=== PATIENT | male | born 1945 | race Caucasian/White ===

== ENCOUNTER 2020-02-27 16:33 | Inpatient (IN) | payer MEDICARE ==
[2020-02-27] MEDS ORDERED: Senokot S 8.6-50 MG TAB PO PRN (19:33)
[2020-02-27] MEDS ORDERED: Dextrose 50% Abboject 50 ML SYRINGE SLOW IVP PRN (19:47)
[2020-02-27] MEDS ORDERED: Insulin Glargine 15 UNITS in Pre-Filled Syringe 1 EACH SC SCH (21:00)
[2020-02-27] MEDS: Famotidine 20 MG TAB PO SCH (21:59)
[2020-02-27] MEDS: Docusate 100 MG CAP PO SCH (21:59)
[2020-02-27] MEDS: Latanoprost 0.005% Ophth Soln 2.5 ml Bottle EA EYE SCH (21:59)
[2020-02-27] MEDS: Tamsulosin HCl 0.4 MG CAP PO SCH (21:59)
[2020-02-27] MEDS: Lantus 1000 UNITS/10 ML VIAL SC SCH (22:00)
[2020-02-27] MEDS: HumaLOG 300 UNITS/3 ML VIAL SC PRN (22:01)
[2020-02-28 02:54] LABS: Bilirubin Negative (Negative); Blood, Urine Large (Negative); Clarity Hazy (Clear); Glucose, Urine (Dipstick) Negative (Negative); Ketone, Urine Negative (Negative); Leukocyte Moderate (Negative); Nitrite Negative (Negative); Protein, Urine (Dipstick) 100 mg/dL (Neg-Trace)
[2020-02-28 03:16] LABS: WBC/HPF Greater Than 50 HPF (0-3)
[2020-02-28 03:17] LABS: Squamous Epithelial 0-3 HPF (0-3)
[2020-02-28 03:18] LABS: Bacteria/HPF 2+ HPF (None Seen); Yeast-Budding 1+ HPF (None Seen)
[2020-02-28] MEDS: Levothyroxine Sodium 50 MCG TAB PO SCH (05:34)
[2020-02-28] MEDS: Ondansetron ODT 4 MG TAB PO PRN (05:36)
[2020-02-28] MEDS: Enoxaparin Sodium 40 MG/0.4 ML SYRINGE SC SCH (08:25)
[2020-02-28] MEDS: Amlodipine 5 MG TAB PO SCH (08:25)
[2020-02-28] MEDS: Dutasteride 0.5 MG CAP PO SCH (08:25)
[2020-02-28] MEDS: Famotidine 20 MG TAB PO SCH ×2 (08:25→22:01)
[2020-02-28] MEDS: Polyethylene Glycol 3350 17 GM Packet PO SCH (08:25)
[2020-02-28] MEDS: Docusate 100 MG CAP PO SCH ×2 (08:26→22:03)
[2020-02-28] MEDS: Lantus 1000 UNITS/10 ML VIAL SC SCH ×2 (08:29→22:04)
[2020-02-28] MEDS ORDERED: DULAGLUTIDE 0.75 UNIT SC SCH (09:00)
[2020-02-28] MEDS ORDERED: Fluticasone Propionate Nasal Spray 16 gm Bottle NASAL SCH (11:00)
[2020-02-28] MEDS: Artificial Tear Sol 15 ML BOT EA EYE PRN ×2 (12:24→22:04)
[2020-02-28] MEDS: HumaLOG 300 UNITS/3 ML VIAL SC PRN ×2 (12:39→16:50)
[2020-02-28] MEDS: Tamsulosin HCl 0.4 MG CAP PO SCH (22:01)
[2020-02-28] MEDS: Acetaminophen 325 MG TAB PO PRN (22:03)
[2020-02-28] MEDS: Latanoprost 0.005% Ophth Soln 2.5 ml Bottle EA EYE SCH (22:04)
--- NOTE | 2020-02-29 00:49 | HP ---
PRIMARY CARE PHYSICIAN: Dr. Clyde Bertrand. REASON FOR ADMISSION: For skilled rehabilitation at [facility], status post neuroendocrine carcinoma, large cell anaplastic carcinoma , status post surgical resection, urinary retention and physical debility. HISTORY OF PRESENT ILLNESS: Mr. Tracy is a very pleasant 74-year-old male, with a medical history of diabetes, type 2; carotid artery stenosis requiring prior endarterectomy as well as prior bypass procedure. Patient does have a history of BPH and bladder cancer under the care of urologist; obstructive sleep apnea, on his CPAP. The patient had presented to the emergency room via EMS on the 08 of February due to syncopal episode. Patient did not have any recollection of the events and he was seen in the emergency room in [place], where he had a CT scan of the brain and at that time revealed a left parietooccipital scalp contusion with hematoma with extensive right frontal white matter, likely a cyst or old infarction. No significant mass effect was seen. Patient was recommended to have an MRI to look for underlying occult mass and nothing was seen at that time. He was discharged home to follow up as an outpatient. Patient stated he had woken up about 3:00 a.m. to go to the bathroom and he used a walker to be safe which was not typical for him. Patient stated he was walking down the [place] when he passed out again and fell through a window. Patient was seen again via EMS and brought back to the emergency room. A repeat CAT scan of the head showed progression with some midline shift. Initially, patient had no significant neurological symptoms, but upon further questioning, he noted he had some tingling in his right finger and middle fingers, and he had been dropping things. Otherwise, patient denies any numbness, weakness, difficulty with speech or swallowing or any gait or balance issues prior to all of this. Patient was seen by neurosurgeon and underwent a resection by Dr. Whitney on February 13. Patient was started on steroids to help with edema around the tumor. During hospitalization in [facility], patient complains of a persistent headache as well as nasal congestion. He was started on Flonase with oral medications for pain. He was noted to have significant weakness, difficulty doing more than sitting up on the side of the bed and he was started on physical therapy. Occupational Therapy also started working with the patient to help regain his strength. During hospitalization, patient's blood pressure was managed with metoprolol with addition of amlodipine, which he tolerated well. His blood sugars were controlled with a combination of Trulicity and long-acting insulin and patient does have a history of a urinary retention and during hospitalization, he had to have a Chau catheter reinserted and he was started on Flomax and continuation of Avodart that he was taking at home. Patient does have a history of sleep apnea and uses a CPAP at home. Due to the new onset severe deconditioning, it was decided for the patient to come to skilled rehabilitation for physical therapy prior to discharge back to his home. Upon evaluation of the patient today, he was sleepy, but easily arousable. He complained of some topical head pain to the incision site on his scalp. He denies any nausea, vomiting, chest pain, or dizziness. He complains of weakness. Patient is noted by staff to be mildly forgetful as he repeats the same questions over and over. PAST MEDICAL HISTORY: CAD, obstructive sleep apnea, and urinary retention. FAMILY HISTORY: Patient reports cardiac history in his father and diabetes in his mother. SOCIAL HISTORY: Denies tobacco, alcohol, or illicit drug use. Patient lives at home with his . CODE STATUS: The patient is a full code. is the surrogate decision maker that should be necessary. MEDICATIONS: 1. Arlington 7.5/325. 2. Amlodipine 2.5 daily. 3. Artificial Tears. 4. Colace 100 b.i.d. 5. Avodart 0.5 daily. 6. Lovenox 40 subcu daily. 7. Pepcid 20 b.i.d. 8. Flonase 1 spray to each nose daily. 9. Lantus 15 units subcu b.i.d. 10. Synthroid 50 mcg daily. 11. Toprol-XL 100 mg daily. 12. Trulicity 0.75 subcu once a week. 13. Flomax 0.4 at bedtime. REVIEW OF SYSTEMS: CONSTITUTIONAL: Patient complains of generalized weakness. Patient denies any fever or chills. RESPIRATORY: Denies cough or shortness of breath. CARDIOVASCULAR: Denies chest pain or palpitation. GASTROINTESTINAL: Denies nausea, vomiting, diarrhea, or constipation. GENITOURINARY: Patient denies dysuria. Patient does have a Chau catheter in place. NEUROLOGIC: Patient complains of generalized weakness, mild head pain. PSYCHIATRY: Patient is noted to have some confusion. SKIN: Patient denies any rash or lesions. PHYSICAL EXAMINATION: VITAL SIGNS: Temperature 97.2, pulse 62, respirations 18, blood pressure 155/77 , and O2 is 96% on room air. GENERAL: Patient is sleepy, but easily arousable. Complains of mild pain to his scalp. Denies any blurry vision. No dizziness. Otherwise, he is not in any apparent distress. LUNGS: Clear to auscultation bilaterally. HEART: Has normal S1, S2. No murmurs, no gallops, no rubs. ABDOMEN: Positive bowel sounds. Soft, nontender, and nondistended. CHEST: Patient does have a left subclavian pacemaker. HEENT: Normocephalic, atraumatic. Well-healing incision to his right scalp. EXTREMITIES: No cyanosis, no clubbing, no edema. SKIN: Normal turgor. Mild skin tear to left forearm, superficial. NEUROLOGIC: Patient does have slight weakness with left hand automatic bandsaw tender. PSYCHIATRY: Normal affect. Normal behavior. Alert, awake, and oriented x3. Per nurse, patient has had some mild confusion with repeating of questions. ASSESSMENT: 1. Neuroendocrine carcinoma, large cell anaplastic carcinoma, status post resection. 2. Physical debility. 3. Urinary retention with current Chau catheter in place. 4. Gait instability. 5. Obstructive sleep apnea. 6. Mild anemia postoperatively. 7. Diabetes, type 2, on insulin. 8. BPH. 9. Coronary artery disease. 10. Right popliteal fossa cyst. 11. Hypothyroidism. 12. Multilevel spondylosis of the cervical spine and ankylosis of C5-C7. 13. Glaucoma. 14. Hypertension. PLAN: Patient is a 74-year-old male, who is being admitted to [facility] for skilled rehabilitation prior to discharge back to his home. We will consult Physical Therapy for strengthening, gait, balance , and ambulation. We will consult Occupational Therapy to help with activities of daily living prior to discharge back to his home. We will consult Speech Therapy due to recent surgery to help with swallowing. We will monitor patient closely for any hemodynamic instability. We will assist patient in making followup appointments with neurosurgeon, oncologist, and urologist. We will start the patient on a voiding trial to help him with the urinary retention and possibly discontinuing of his Chau. We will place the patient on Accu-Chek a.c. and at bedtime. We will place the patient on sliding scale. Will continue patient's Lantus b.i.d. We will cover patient's pain with Arlington. We will resume all patient's home medications. Unfortunately, when patient presented for admission, his CPAP was broken and this could be used well. stated she was going to assist with getting a new one. We will help followup on this as patient strongly needs his CPAP machine due to his obstructive sleep apnea. We will place the patient on Lovenox for DVT prophylaxis and Pepcid for GI prophylaxis. ESTIMATED LENGTH OF STAY: Two to three weeks. DISCHARGE DISPOSITION: Back to his home with his . Job ID: [id number] MTDD
[2020-02-29] MEDS: Levothyroxine Sodium 50 MCG TAB PO SCH (05:24)
[2020-02-29] MEDS: Docusate 100 MG CAP PO SCH ×2 (08:17→21:17)
[2020-02-29] MEDS: Amlodipine 5 MG TAB PO SCH (08:17)
[2020-02-29] MEDS: Enoxaparin Sodium 40 MG/0.4 ML SYRINGE SC SCH (08:17)
[2020-02-29] MEDS: Famotidine 20 MG TAB PO SCH ×2 (08:17→21:17)
[2020-02-29] MEDS: Dutasteride 0.5 MG CAP PO SCH (08:17)
[2020-02-29] MEDS: Polyethylene Glycol 3350 17 GM Packet PO SCH (08:19)
[2020-02-29] MEDS ORDERED: Fluticasone Propionate Nasal Spray 16 gm Bottle NASAL SCH (09:00)
[2020-02-29] MEDS: HumaLOG 300 UNITS/3 ML VIAL SC PRN ×4 (09:13→21:16)
[2020-02-29] MEDS: Lantus 1000 UNITS/10 ML VIAL SC SCH ×2 (09:13→21:16)
[2020-02-29] MEDS: Acetaminophen 325 MG TAB PO PRN ×2 (11:55→21:18)
[2020-02-29] MEDS: Artificial Tear Sol 15 ML BOT EA EYE PRN (21:17)
[2020-02-29] MEDS: Tamsulosin HCl 0.4 MG CAP PO SCH (21:18)
[2020-02-29] MEDS: Fluticasone Propionate Nasal Spray 16 gm Bottle NASAL SCH (21:18)
[2020-02-29] MEDS: Latanoprost 0.005% Ophth Soln 2.5 ml Bottle EA EYE SCH (21:18)
[2020-03-01] MEDS: Levothyroxine Sodium 50 MCG TAB PO SCH (05:53)
[2020-03-01] MEDS: Dutasteride 0.5 MG CAP PO SCH (08:09)
[2020-03-01] MEDS: Artificial Tear Sol 15 ML BOT EA EYE PRN (08:10)
[2020-03-01] MEDS: Docusate 100 MG CAP PO SCH ×2 (08:10→20:15)
[2020-03-01] MEDS: Famotidine 20 MG TAB PO SCH ×2 (08:10→20:16)
[2020-03-01] MEDS: Fluticasone Propionate Nasal Spray 16 gm Bottle NASAL SCH ×2 (08:10→20:52)
[2020-03-01] MEDS: Amlodipine 5 MG TAB PO SCH (08:10)
[2020-03-01] MEDS: Enoxaparin Sodium 40 MG/0.4 ML SYRINGE SC SCH (08:11)
[2020-03-01] MEDS: Lantus 1000 UNITS/10 ML VIAL SC SCH ×2 (08:11→20:52)
[2020-03-01] MEDS: HumaLOG 300 UNITS/3 ML VIAL SC PRN ×3 (08:11→17:04)
[2020-03-01] MEDS: Polyethylene Glycol 3350 17 GM Packet PO SCH (08:12)
[2020-03-01] MEDS: Acetaminophen 325 MG TAB PO PRN ×2 (08:20→20:16)
[2020-03-01] MEDS: Ondansetron ODT 4 MG TAB PO PRN (08:23)
[2020-03-01] MEDS ORDERED: Ondansetron ODT 4 MG TAB PO SCH (09:45)
[2020-03-01] MEDS: Sodium Chloride 0.65% Nasal 44 ML BOT EA NARE PRN (10:07)
[2020-03-01 12:11] VITALS: BMI 26.4
[2020-03-01] MEDS: Tamsulosin HCl 0.4 MG CAP PO SCH (20:16)
[2020-03-01] MEDS: Latanoprost 0.005% Ophth Soln 2.5 ml Bottle EA EYE SCH (20:55)
[2020-03-02] MEDS: Levothyroxine Sodium 50 MCG TAB PO SCH (05:24)
[2020-03-02] MEDS: HumaLOG 300 UNITS/3 ML VIAL SC PRN ×4 (08:01→21:12)
[2020-03-02] MEDS: Artificial Tear Sol 15 ML BOT EA EYE PRN (08:02)
[2020-03-02] MEDS: Lantus 1000 UNITS/10 ML VIAL SC SCH ×2 (08:02→21:07)
[2020-03-02] MEDS: Sodium Chloride 0.65% Nasal 44 ML BOT EA NARE PRN (08:03)
[2020-03-02] MEDS: Polyethylene Glycol 3350 17 GM Packet PO SCH (08:03)
[2020-03-02] MEDS: Enoxaparin Sodium 40 MG/0.4 ML SYRINGE SC SCH (08:03)
[2020-03-02] MEDS: Dutasteride 0.5 MG CAP PO SCH (08:03)
[2020-03-02] MEDS: Amlodipine 5 MG TAB PO SCH (08:04)
[2020-03-02] MEDS: Famotidine 20 MG TAB PO SCH ×2 (08:04→20:57)
[2020-03-02] MEDS: Docusate 100 MG CAP PO SCH ×2 (08:04→20:57)
[2020-03-02] MEDS: Fluticasone Propionate Nasal Spray 16 gm Bottle NASAL SCH ×2 (08:10→20:58)
[2020-03-02] MEDS: Acetaminophen 325 MG TAB PO PRN (08:23)
[2020-03-02] MEDS: Tamsulosin HCl 0.4 MG CAP PO SCH (20:57)
[2020-03-02] MEDS: Latanoprost 0.005% Ophth Soln 2.5 ml Bottle EA EYE SCH (20:59)
[2020-03-03] MEDS: Levothyroxine Sodium 50 MCG TAB PO SCH (06:00)
[2020-03-03] MEDS: Amlodipine 5 MG TAB PO SCH (08:32)
[2020-03-03] MEDS: Docusate 100 MG CAP PO SCH ×2 (08:34→20:46)
[2020-03-03] MEDS: Famotidine 20 MG TAB PO SCH ×2 (08:34→20:57)
[2020-03-03] MEDS: Polyethylene Glycol 3350 17 GM Packet PO SCH (08:35)
[2020-03-03] MEDS: Enoxaparin Sodium 40 MG/0.4 ML SYRINGE SC SCH (08:35)
[2020-03-03] MEDS: Dutasteride 0.5 MG CAP PO SCH (08:35)
[2020-03-03] MEDS: Fluticasone Propionate Nasal Spray 16 gm Bottle NASAL SCH ×2 (08:35→20:47)
[2020-03-03] MEDS: Sodium Chloride 0.65% Nasal 44 ML BOT EA NARE PRN (08:36)
[2020-03-03] MEDS: Lantus 1000 UNITS/10 ML VIAL SC SCH ×2 (08:36→20:48)
[2020-03-03] MEDS: Acetaminophen 325 MG TAB PO PRN (08:38)
[2020-03-03] MEDS: HumaLOG 300 UNITS/3 ML VIAL SC PRN ×3 (12:16→20:53)
[2020-03-03] MEDS: Ondansetron ODT 4 MG TAB PO PRN (16:43)
[2020-03-03] MEDS: HYDROcodone/Acetaminophen 7.5/325 mg Tablet PO PRN (17:45)
[2020-03-03] MEDS: Tamsulosin HCl 0.4 MG CAP PO SCH (20:46)
[2020-03-03] MEDS: Latanoprost 0.005% Ophth Soln 2.5 ml Bottle EA EYE SCH (21:02)
[2020-03-04] MEDS: Levothyroxine Sodium 50 MCG TAB PO SCH (05:41)
[2020-03-04] MEDS: Dutasteride 0.5 MG CAP PO SCH (08:10)
[2020-03-04] MEDS: Amlodipine 5 MG TAB PO SCH (08:11)
[2020-03-04] MEDS: Polyethylene Glycol 3350 17 GM Packet PO SCH (08:12)
[2020-03-04] MEDS: Fluticasone Propionate Nasal Spray 16 gm Bottle NASAL SCH ×2 (08:12→20:45)
[2020-03-04] MEDS: Enoxaparin Sodium 40 MG/0.4 ML SYRINGE SC SCH (08:12)
[2020-03-04] MEDS: Famotidine 20 MG TAB PO SCH ×2 (08:12→20:45)
[2020-03-04] MEDS: Docusate 100 MG CAP PO SCH ×2 (08:12→20:45)
[2020-03-04] MEDS: Lantus 1000 UNITS/10 ML VIAL SC SCH ×2 (08:12→20:44)
[2020-03-04] MEDS: HumaLOG 300 UNITS/3 ML VIAL SC PRN ×3 (08:13→17:06)
[2020-03-04] MEDS: Dulaglutide [Trulicity] 0.75 MG SC SCH ×2 (08:14→08:30)
[2020-03-04] MEDS: HYDROcodone/Acetaminophen 7.5/325 mg Tablet PO PRN (19:00)
[2020-03-04] MEDS: Latanoprost 0.005% Ophth Soln 2.5 ml Bottle EA EYE SCH (20:45)
[2020-03-04] MEDS: Tamsulosin HCl 0.4 MG CAP PO SCH (20:45)
[2020-03-05] MEDS: HYDROcodone/Acetaminophen 7.5/325 mg Tablet PO PRN ×2 (05:21→11:21)
[2020-03-05] MEDS: Levothyroxine Sodium 50 MCG TAB PO SCH (05:22)
[2020-03-05] MEDS: Fluticasone Propionate Nasal Spray 16 gm Bottle NASAL SCH ×2 (08:29→20:43)
[2020-03-05] MEDS: Polyethylene Glycol 3350 17 GM Packet PO SCH (08:29)
[2020-03-05] MEDS: Enoxaparin Sodium 40 MG/0.4 ML SYRINGE SC SCH (08:29)
[2020-03-05] MEDS: Amlodipine 5 MG TAB PO SCH (08:30)
[2020-03-05] MEDS: Famotidine 20 MG TAB PO SCH ×2 (08:31→20:43)
[2020-03-05] MEDS: HumaLOG 300 UNITS/3 ML VIAL SC PRN ×3 (08:32→16:51)
[2020-03-05] MEDS: Dutasteride 0.5 MG CAP PO SCH (08:32)
[2020-03-05] MEDS: Lantus 1000 UNITS/10 ML VIAL SC SCH ×2 (08:32→20:42)
[2020-03-05] MEDS: Docusate 100 MG CAP PO SCH ×2 (08:32→20:42)
[2020-03-05] MEDS: Tamsulosin HCl 0.4 MG CAP PO SCH (20:42)
[2020-03-05] MEDS: Latanoprost 0.005% Ophth Soln 2.5 ml Bottle EA EYE SCH (20:42)
[2020-03-06] MEDS: Levothyroxine Sodium 50 MCG TAB PO SCH (05:05)
[2020-03-06] MEDS: Dutasteride 0.5 MG CAP PO SCH (07:53)
[2020-03-06] MEDS: Amlodipine 5 MG TAB PO SCH (07:56)
[2020-03-06] MEDS: Enoxaparin Sodium 40 MG/0.4 ML SYRINGE SC SCH (07:59)
[2020-03-06] MEDS: Famotidine 20 MG TAB PO SCH ×2 (07:59→20:31)
[2020-03-06] MEDS: Docusate 100 MG CAP PO SCH ×2 (07:59→20:31)
[2020-03-06] MEDS: Lantus 1000 UNITS/10 ML VIAL SC SCH ×2 (08:01→20:32)
[2020-03-06] MEDS: Polyethylene Glycol 3350 17 GM Packet PO SCH (08:02)
[2020-03-06] MEDS: Fluticasone Propionate Nasal Spray 16 gm Bottle NASAL SCH ×2 (08:06→20:31)
[2020-03-06] MEDS: Acetaminophen 325 MG TAB PO PRN ×2 (08:31→17:51)
[2020-03-06] MEDS: HumaLOG 300 UNITS/3 ML VIAL SC PRN ×2 (11:30→16:37)
[2020-03-06] MEDS: Tamsulosin HCl 0.4 MG CAP PO SCH (20:31)
[2020-03-06] MEDS: Latanoprost 0.005% Ophth Soln 2.5 ml Bottle EA EYE SCH (20:32)
[2020-03-07] MEDS: Levothyroxine Sodium 50 MCG TAB PO SCH (05:39)
[2020-03-07] MEDS: Acetaminophen 325 MG TAB PO PRN ×2 (08:07→21:00)
[2020-03-07] MEDS: Enoxaparin Sodium 40 MG/0.4 ML SYRINGE SC SCH (08:07)
[2020-03-07] MEDS: Dutasteride 0.5 MG CAP PO SCH (08:07)
[2020-03-07] MEDS: Famotidine 20 MG TAB PO SCH ×2 (08:07→20:58)
[2020-03-07] MEDS: Docusate 100 MG CAP PO SCH ×2 (08:07→20:58)
[2020-03-07] MEDS: Amlodipine 5 MG TAB PO SCH (08:07)
[2020-03-07] MEDS: Polyethylene Glycol 3350 17 GM Packet PO SCH (08:08)
[2020-03-07] MEDS: HumaLOG 300 UNITS/3 ML VIAL SC PRN ×3 (08:08→17:01)
[2020-03-07] MEDS: Lantus 1000 UNITS/10 ML VIAL SC SCH ×2 (08:09→21:01)
[2020-03-07] MEDS: Fluticasone Propionate Nasal Spray 16 gm Bottle NASAL SCH ×2 (08:09→20:59)
[2020-03-07] MEDS: Tamsulosin HCl 0.4 MG CAP PO SCH (20:58)
[2020-03-07] MEDS: Latanoprost 0.005% Ophth Soln 2.5 ml Bottle EA EYE SCH (20:58)
[2020-03-08] MEDS: Levothyroxine Sodium 50 MCG TAB PO SCH (05:43)
[2020-03-08] MEDS: Amlodipine 5 MG TAB PO SCH (08:05)
[2020-03-08] MEDS: Dutasteride 0.5 MG CAP PO SCH (08:06)
[2020-03-08] MEDS: Famotidine 20 MG TAB PO SCH ×2 (08:06→21:37)
[2020-03-08] MEDS: Docusate 100 MG CAP PO SCH ×2 (08:07→21:37)
[2020-03-08] MEDS: Fluticasone Propionate Nasal Spray 16 gm Bottle NASAL SCH ×2 (08:07→21:38)
[2020-03-08] MEDS: Lantus 1000 UNITS/10 ML VIAL SC SCH ×2 (08:08→21:35)
[2020-03-08] MEDS: Enoxaparin Sodium 40 MG/0.4 ML SYRINGE SC SCH (08:08)
[2020-03-08] MEDS: Polyethylene Glycol 3350 17 GM Packet PO SCH (08:29)
[2020-03-08] MEDS: HumaLOG 300 UNITS/3 ML VIAL SC PRN ×2 (17:04→21:35)
[2020-03-08] MEDS: Artificial Tear Sol 15 ML BOT EA EYE PRN (21:34)
[2020-03-08] MEDS: Acetaminophen 325 MG TAB PO PRN (21:37)
[2020-03-08] MEDS: Latanoprost 0.005% Ophth Soln 2.5 ml Bottle EA EYE SCH (21:37)
[2020-03-08] MEDS: Tamsulosin HCl 0.4 MG CAP PO SCH (21:37)
[2020-03-09] MEDS: Levothyroxine Sodium 50 MCG TAB PO SCH (05:22)
[2020-03-09] MEDS: Enoxaparin Sodium 40 MG/0.4 ML SYRINGE SC SCH (07:56)
[2020-03-09] MEDS: Polyethylene Glycol 3350 17 GM Packet PO SCH (07:56)
[2020-03-09] MEDS: Acetaminophen 325 MG TAB PO PRN ×2 (07:56→13:31)
[2020-03-09] MEDS: Docusate 100 MG CAP PO SCH ×2 (07:56→20:40)
[2020-03-09] MEDS: Amlodipine 5 MG TAB PO SCH (07:57)
[2020-03-09] MEDS: Famotidine 20 MG TAB PO SCH ×2 (07:57→20:40)
[2020-03-09] MEDS: Dutasteride 0.5 MG CAP PO SCH (07:57)
[2020-03-09] MEDS: Fluticasone Propionate Nasal Spray 16 gm Bottle NASAL SCH ×2 (07:57→20:41)
[2020-03-09] MEDS: Lantus 1000 UNITS/10 ML VIAL SC SCH ×2 (07:58→20:41)
[2020-03-09] MEDS: HumaLOG 300 UNITS/3 ML VIAL SC PRN ×3 (07:58→17:09)
[2020-03-09] MEDS: Artificial Tear Sol 15 ML BOT EA EYE PRN (20:40)
[2020-03-09] MEDS: Latanoprost 0.005% Ophth Soln 2.5 ml Bottle EA EYE SCH (20:40)
[2020-03-09] MEDS: Tamsulosin HCl 0.4 MG CAP PO SCH (20:40)
[2020-03-10] MEDS: Levothyroxine Sodium 50 MCG TAB PO SCH (05:37)
[2020-03-10] MEDS: Dutasteride 0.5 MG CAP PO SCH (08:07)
[2020-03-10] MEDS: Docusate 100 MG CAP PO SCH ×2 (08:07→20:50)
[2020-03-10] MEDS: Amlodipine 5 MG TAB PO SCH (08:07)
[2020-03-10] MEDS: Enoxaparin Sodium 40 MG/0.4 ML SYRINGE SC SCH (08:07)
[2020-03-10] MEDS: Polyethylene Glycol 3350 17 GM Packet PO SCH (08:07)
[2020-03-10] MEDS: Famotidine 20 MG TAB PO SCH ×2 (08:08→20:50)
[2020-03-10] MEDS: Lantus 1000 UNITS/10 ML VIAL SC SCH ×2 (08:08→20:54)
[2020-03-10] MEDS: Fluticasone Propionate Nasal Spray 16 gm Bottle NASAL SCH ×2 (08:08→20:51)
[2020-03-10] MEDS: HumaLOG 300 UNITS/3 ML VIAL SC PRN ×3 (08:09→16:51)
[2020-03-10] MEDS: Acetaminophen 325 MG TAB PO PRN ×3 (08:10→16:53)
[2020-03-10] MEDS: Artificial Tear Sol 15 ML BOT EA EYE PRN (20:48)
[2020-03-10] MEDS: Tamsulosin HCl 0.4 MG CAP PO SCH (20:50)
[2020-03-10] MEDS: Latanoprost 0.005% Ophth Soln 2.5 ml Bottle EA EYE SCH (20:50)
[2020-03-11] MEDS: Levothyroxine Sodium 50 MCG TAB PO SCH (05:30)
[2020-03-11] MEDS: Acetaminophen 325 MG TAB PO PRN (08:12)
[2020-03-11] MEDS: Famotidine 20 MG TAB PO SCH ×2 (08:13→21:03)
[2020-03-11] MEDS: Docusate 100 MG CAP PO SCH ×2 (08:13→21:03)
[2020-03-11] MEDS: Amlodipine 5 MG TAB PO SCH (08:13)
[2020-03-11] MEDS: HumaLOG 300 UNITS/3 ML VIAL SC PRN ×2 (08:14→12:02)
[2020-03-11] MEDS: Lantus 1000 UNITS/10 ML VIAL SC SCH ×2 (08:14→21:04)
[2020-03-11] MEDS: Fluticasone Propionate Nasal Spray 16 gm Bottle NASAL SCH ×2 (08:15→21:04)
[2020-03-11] MEDS: Dutasteride 0.5 MG CAP PO SCH (08:15)
[2020-03-11] MEDS: Enoxaparin Sodium 40 MG/0.4 ML SYRINGE SC SCH (08:15)
[2020-03-11] MEDS: Polyethylene Glycol 3350 17 GM Packet PO SCH (08:16)
[2020-03-11] MEDS: Dulaglutide [Trulicity] 0.75 MG SC SCH (08:22)
[2020-03-11] MEDS: Latanoprost 0.005% Ophth Soln 2.5 ml Bottle EA EYE SCH (21:03)
[2020-03-11] MEDS: Tamsulosin HCl 0.4 MG CAP PO SCH (21:03)
[2020-03-11] MEDS: Artificial Tear Sol 15 ML BOT EA EYE PRN (21:04)
[2020-03-12 00:39] VITALS: TEMP 97.8
[2020-03-12] MEDS: Levothyroxine Sodium 50 MCG TAB PO SCH (05:32)
[2020-03-12 08:35] VITALS: BP 134/72
[2020-03-12] MEDS: HumaLOG 300 UNITS/3 ML VIAL SC PRN ×2 (09:01→12:06)
[2020-03-12] MEDS: Lantus 1000 UNITS/10 ML VIAL SC SCH (09:01)
[2020-03-12] MEDS: Amlodipine 5 MG TAB PO SCH (09:02)
[2020-03-12] MEDS: Polyethylene Glycol 3350 17 GM Packet PO SCH ×2 (09:02→09:18)
[2020-03-12] MEDS: Docusate 100 MG CAP PO SCH (09:02)
[2020-03-12] MEDS: Dutasteride 0.5 MG CAP PO SCH (09:03)
[2020-03-12] MEDS: Enoxaparin Sodium 40 MG/0.4 ML SYRINGE SC SCH (09:03)
[2020-03-12] MEDS: Famotidine 20 MG TAB PO SCH (09:03)
[2020-03-12] MEDS: Fluticasone Propionate Nasal Spray 16 gm Bottle NASAL SCH (09:04)
[2020-03-12] MEDS: Artificial Tear Sol 15 ML BOT EA EYE PRN (09:04)
[2020-03-12] MEDS: Acetaminophen 325 MG TAB PO PRN (09:06)
--- NOTE | 2020-03-13 08:04 | DIS ---
DATE OF ADMISSION: 02/27/2020 DATE OF DISCHARGE: 03/12/2020 DISCHARGING PHYSICIAN: Hubert Ortega MD. PRIMARY CARE PHYSICIAN: Clyde Bertrand MD. DISCHARGE DISPOSITION: Back to his home with his family. DISCHARGE ACTIVITY: Patient to start outpatient physical therapy, occupational therapy, and speech therapy at [facility]. The patient is to follow up with PCP, Dr. Clyde Bertrand within one week. The patient is to follow up with Dr. Timothy Peters and Dr. Kennedy Mares as an outpatient. The patient to follow up with Dr. Whitney within 6 weeks and patient is to follow up with Dr. Heller, urologist, as an outpatient. DISCHARGE DIAGNOSES: 1. Physical deconditioning. 2. Large cell anaplastic carcinoma, status post resection. 3. Diabetes type 2. 4. Obstructive sleep apnea. 5. Benign prostatic hypertrophy. 6. Hypertension. DISCHARGE MEDICATIONS: 1. Tylenol 650 q.4 hours p.r.n. 2. Amlodipine 2.5 mg daily. 3. Colace 100 b.i.d. 4. Avodart 0.5 daily. 5. Flonase 1 spray in each nose b.i.d. 6. Lantus 15 units b.i.d. 7. Synthroid 50 mcg daily. 8. Toprol 100 daily. 9. Trulicity 0.75 subcu once a week. 10. MiraLAX 17 g daily. 11. Flomax 0.4 mg p.o. at bedtime. BRIEF HOSPITAL COURSE: Mr. Lg Tracy is a 74-year-old male who was admitted here in [facility] for skilled rehabilitation on February 27, 2020. He has a history of diabetes type 2, coronary artery stenosis, BPH, bladder cancer, obstructive sleep apnea. The patient had presented to the emergency room on 08 of February due to a syncopal episode. He was discharged home and the next day he had another syncopal episode and CT showed a tumor with progression in midline shift. The patient was seen by neurosurgeon, Dr. Whitney, who performed a resection on February 13 and started the patient on steroids due to swelling around the tumor. The patient's surgery was complicated by persistent headache and nasal congestion, which was treated with oral medications and Flonase. He was noted to be significantly deconditioned and subsequently transferred here to [facility] for skilled rehabilitation, occupational therapy, and speech therapy. During hospitalization, the patient also had urinary retention requiring a powell and he was progressively taken off the Powell catheter during admission here. The patient was able to participate in physical therapy, though very slowly. He improved minimally but had not met any of his goal prior to discharge back to his home due to insurance denial of continuation of skilled inpatient rehabilitation. The patient was able to follow up with neurosurgeon and was able to follow up with oncologist, Dr. Peters and also Dr. Mares for plans for his malignant carcinoma. Unfortunately for the patient, he still needed continuation of therapy but his insurance was not willing to continue paying for inpatient skilled rehabilitation and the decision was made by family to discharge the patient home and he will continue outpatient physical therapy at [facility]. The patient to have a repeat PET scan on March 15 and a repeat MRI of the brain on March 15. The patient was discharged home with family in a stable condition. DISCHARGE VITAL SIGNS: Temperature 97.8, pulse 67, respirations 18, O2 saturation 98% on room air, blood pressure 134/72. The patient is a full code. Job ID: [id number] MTDD
== END 2020-03-12 15:00 | disposition home or self-care (01) | DRG 948 ==
LOC: MADMS 17:02
PROVIDERS: ADMIT Family Medicine; ATTEND Family Medicine
DX: R53.81 Other malaise (principal); I25.10 Atherosclerotic heart disease of native coronary artery without angina pectoris; E11.9 Type 2 diabetes mellitus without complications; R26.81 Unsteadiness on feet; N40.1 Benign prostatic hyperplasia with lower urinary tract symptoms; R33.8 Other retention of urine; G47.33 Obstructive sleep apnea (adult) (pediatric); D64.9 Anemia, unspecified; M71.21 Synovial cyst of popliteal space [Baker], right knee; E03.9 Hypothyroidism, unspecified; M47.812 Spondylosis without myelopathy or radiculopathy, cervical region; M43.22 Fusion of spine, cervical region; I10 Essential (primary) hypertension; H40.9 Unspecified glaucoma; Z85.51 Personal history of malignant neoplasm of bladder; Z85.841 Personal history of malignant neoplasm of brain; Z79.4 Long term (current) use of insulin; Z79.899 Other long term (current) drug therapy
CPT/HCPCS: 36416; 81001; J1650; J1815; Q0162

== ENCOUNTER 2021-03-08 15:36 | Inpatient (IN) | payer MEDICARE ==
[2021-03-08 16:02] VITALS: BMI 27.4
[2021-03-08] MEDS ORDERED: Ondansetron ODT 4 MG TAB PO PRN (16:48)
[2021-03-08] MEDS ORDERED: Dextrose 50% Abboject 50 ML SYRINGE SLOW IVP PRN (16:52)
[2021-03-08] MEDS ORDERED: Artificial Tear Sol 15 ML BOT EA EYE PRN (16:53)
[2021-03-08] MEDS ORDERED: Acetaminophen 325 MG TAB PO PRN (16:53)
[2021-03-08] MEDS ORDERED: TRULICITY SC SCH (17:45)
[2021-03-08 18:29] LABS: Bilirubin Negative (Negative); Blood, Urine Trace (Negative); Glucose, Urine (Dipstick) Negative (Negative); Ketone, Urine Negative (Negative); Leukocyte Moderate (Negative); Nitrite Negative (Negative); Protein, Urine (Dipstick) 30 mg/dL (Neg-Trace); Specific Gravity, Urine 1.015 (1.005-1.030); Urobilinogen 0.2 mg/dL (Less than 2)
[2021-03-08 18:32] LABS: Clarity Hazy (Clear)
[2021-03-08 18:37] LABS: Bacteria/HPF Rare-Few HPF (None Seen); RBC/HPF 0-3 HPF (0-3); WBC/HPF Greater Than 50 HPF (0-3)
[2021-03-08] MEDS: Docusate 100 MG CAP PO SCH (20:52)
[2021-03-08] MEDS: Atorvastatin Calcium 40 MG TAB PO SCH (20:52)
[2021-03-08] MEDS: BIMATOPROST EA EYE SCH (20:56)
[2021-03-08] MEDS: Lantus 1000 UNITS/10 ML VIAL SC SCH (20:56)
[2021-03-08] MEDS: BOT EA EYE SCH (20:56)
[2021-03-08] MEDS: Icosapent Ethyl [Vascepa] 1 GM Capsule PO SCH (20:57)
[2021-03-09] MEDS: Levothyroxine Sodium 75 MCG TAB PO SCH (05:32)
[2021-03-09 05:38] LABS: #Basophils 0.1 thou/uL (0.0-0.2); #Eosinphils 0.1 thou/uL (0.0-0.7); #Lymphocytes 1.8 thou/uL (1.20-3.40); #Monocytes 0.9 thou/uL (0.11-0.59); #Neutrophils 7.1 thou/uL (1.40-6.50); %Basophils 0.6 % (0.0-1.0); %Eosinophils 1.3 % (0.0-10.0); %Lymphocytes 17.6 % (21.0-51.0); %Monocytes 9.2 % (0.0-10.0); %Neutrophils 71.3 % (42.0-75.0); Hemoglobin 13.6 g/dL (14.0-18.0); Mean Corpuscular HGB CONC 34.1 g/dL (32.0-36.0); Mean Corpuscular Hemoglobin 31.6 pg (27.0-31.0); Mean Corpuscular Volume 92.6 fL (78.0-98.0); Platelet Count 107 thou/uL (130-400); Platelet Morphology Comment Appears Decreased; RBC Distribution Width 13.9 % (11.5-14.5); RBC Morphology Normal
[2021-03-09 05:44] LABS: ALT (SGPT) 21 U/L (8-55); AST (SGOT) 17 U/L (5-34); Albumin 3.7 g/dL (3.4-4.8); Alkaline Phosphatase 42 U/L (40-110); Anion Gap 13 mmol/L (10-20); BUN (Urea Nitrogen) 23 mg/dL (8.4-25.7); Bilirubin, Total 0.9 mg/dL (0.2-1.2); Calc. Creatinine Clearance 49 mL/min (70-130); Calcium 9.7 mg/dL (7.8-10.44); Carbon Dioxide 28 mmol/L (23-31); Chloride 100 mmol/L (98-107); Globulin 3.3 g/dL (2.4-3.5); Glucose 130 mg/dL (83-110); Potassium 4.1 mmol/L (3.5-5.1); Sodium 137 mmol/L (136-145)
[2021-03-09] MEDS: Clopidogrel Bisulfate 75 MG TAB PO SCH (08:22)
[2021-03-09] MEDS: Silodosin 8 MG CAP PO SCH (08:22)
[2021-03-09] MEDS: Docusate 100 MG CAP PO SCH ×2 (08:22→20:50)
[2021-03-09] MEDS: Lantus 1000 UNITS/10 ML VIAL SC SCH ×2 (08:22→21:20)
[2021-03-09] MEDS: Aspirin Chewable 81 MG TAB PO SCH (08:22)
[2021-03-09] MEDS: Icosapent Ethyl [Vascepa] 1 GM Capsule PO SCH ×2 (08:42→20:51)
[2021-03-09] MEDS ORDERED: Enoxaparin Sodium 40 MG/0.4 ML SYRINGE SC SCH (09:00)
[2021-03-09] MEDS ORDERED: Dextrose 5% in Water 1,000 ML IV PRN (16:45)
[2021-03-09] MEDS ORDERED: Dextrose 50% Abboject 50 ML SYRINGE IVP PRN (16:45)
[2021-03-09] MEDS: HumaLOG 300 UNITS/3 ML VIAL SC PRN ×2 (17:14→21:22)
[2021-03-09] MEDS: Atorvastatin Calcium 40 MG TAB PO SCH (20:50)
[2021-03-09] MEDS: BIMATOPROST EA EYE SCH (20:51)
[2021-03-09] MEDS: BOT EA EYE SCH (20:51)
[2021-03-09] MEDS: Fluticasone Propionate Nasal Spray 16 gm Bottle NASAL PRN (21:26)
[2021-03-10] MEDS: Levothyroxine Sodium 75 MCG TAB PO SCH (05:33)
[2021-03-10] MEDS: Docusate 100 MG CAP PO SCH ×2 (08:19→21:25)
[2021-03-10] MEDS: Silodosin 8 MG CAP PO SCH (08:19)
[2021-03-10] MEDS: Aspirin Chewable 81 MG TAB PO SCH (08:19)
[2021-03-10] MEDS: Clopidogrel Bisulfate 75 MG TAB PO SCH (08:20)
[2021-03-10] MEDS: Icosapent Ethyl [Vascepa] 1 GM Capsule PO SCH ×2 (08:20→21:30)
[2021-03-10] MEDS: Lantus 1000 UNITS/10 ML VIAL SC SCH ×2 (08:21→21:26)
[2021-03-10] MEDS ORDERED: Cipro 250 MG TAB PO SCH (10:30)
[2021-03-10] MEDS: HumaLOG 300 UNITS/3 ML VIAL SC PRN ×3 (11:51→21:30)
[2021-03-10] MEDS: Fluticasone Propionate Nasal Spray 16 gm Bottle NASAL PRN (21:24)
[2021-03-10] MEDS: Cipro 250 MG TAB PO SCH (21:25)
[2021-03-10] MEDS: Atorvastatin Calcium 40 MG TAB PO SCH (21:25)
[2021-03-10] MEDS: Latanoprost 0.005% Ophth Soln 2.5 ml Bottle EA EYE SCH (21:27)
[2021-03-11] MEDS: Acetaminophen 325 MG TAB PO PRN ×2 (05:39→16:19)
[2021-03-11] MEDS: Cipro 250 MG TAB PO SCH ×2 (05:39→19:57)
[2021-03-11] MEDS: Levothyroxine Sodium 75 MCG TAB PO SCH (05:39)
[2021-03-11] MEDS: Aspirin Chewable 81 MG TAB PO SCH (08:53)
[2021-03-11] MEDS: Clopidogrel Bisulfate 75 MG TAB PO SCH (08:53)
[2021-03-11] MEDS: Docusate 100 MG CAP PO SCH ×2 (08:54→19:59)
[2021-03-11] MEDS: Silodosin 8 MG CAP PO SCH (08:54)
[2021-03-11] MEDS: Lantus 1000 UNITS/10 ML VIAL SC SCH ×2 (08:55→19:59)
[2021-03-11] MEDS: Icosapent Ethyl [Vascepa] 1 GM Capsule PO SCH ×2 (08:55→20:00)
[2021-03-11] MEDS: HumaLOG 300 UNITS/3 ML VIAL SC PRN ×3 (12:12→21:16)
[2021-03-11] MEDS: TRULICITY SC SCH (18:09)
[2021-03-11] MEDS: Latanoprost 0.005% Ophth Soln 2.5 ml Bottle EA EYE SCH (19:59)
[2021-03-11] MEDS: Atorvastatin Calcium 40 MG TAB PO SCH (19:59)
[2021-03-12] MEDS: Cipro 250 MG TAB PO SCH ×2 (05:28→21:23)
[2021-03-12] MEDS: Levothyroxine Sodium 75 MCG TAB PO SCH (05:28)
[2021-03-12] MEDS: Silodosin 8 MG CAP PO SCH (09:14)
[2021-03-12] MEDS: Aspirin Chewable 81 MG TAB PO SCH (09:14)
[2021-03-12] MEDS: Clopidogrel Bisulfate 75 MG TAB PO SCH (09:14)
[2021-03-12] MEDS: Acetaminophen 325 MG TAB PO PRN ×2 (09:15→21:32)
[2021-03-12] MEDS: Icosapent Ethyl [Vascepa] 1 GM Capsule PO SCH ×2 (09:15→21:29)
[2021-03-12] MEDS: Docusate 100 MG CAP PO SCH ×2 (09:15→21:23)
[2021-03-12] MEDS: Lantus 1000 UNITS/10 ML VIAL SC SCH ×2 (09:16→21:26)
[2021-03-12] MEDS: HumaLOG 300 UNITS/3 ML VIAL SC PRN ×2 (12:20→17:19)
[2021-03-12] MEDS: Atorvastatin Calcium 40 MG TAB PO SCH (21:23)
[2021-03-12] MEDS: Fluticasone Propionate Nasal Spray 16 gm Bottle NASAL PRN (21:24)
[2021-03-12] MEDS: Latanoprost 0.005% Ophth Soln 2.5 ml Bottle EA EYE SCH (21:27)
[2021-03-13] MEDS: Cipro 250 MG TAB PO SCH ×2 (05:17→21:47)
[2021-03-13] MEDS: Levothyroxine Sodium 75 MCG TAB PO SCH (05:17)
[2021-03-13] MEDS: Docusate 100 MG CAP PO SCH ×2 (08:53→21:47)
[2021-03-13] MEDS: Clopidogrel Bisulfate 75 MG TAB PO SCH (08:53)
[2021-03-13] MEDS: Acetaminophen 325 MG TAB PO PRN ×2 (08:53→21:52)
[2021-03-13] MEDS: Silodosin 8 MG CAP PO SCH (08:53)
[2021-03-13] MEDS: Aspirin Chewable 81 MG TAB PO SCH (08:53)
[2021-03-13] MEDS: Lantus 1000 UNITS/10 ML VIAL SC SCH ×2 (08:54→21:48)
[2021-03-13] MEDS: Icosapent Ethyl [Vascepa] 1 GM Capsule PO SCH ×2 (08:55→21:52)
[2021-03-13] MEDS: HumaLOG 300 UNITS/3 ML VIAL SC PRN ×3 (12:11→21:48)
[2021-03-13] MEDS: Atorvastatin Calcium 40 MG TAB PO SCH (21:47)
[2021-03-13] MEDS: Latanoprost 0.005% Ophth Soln 2.5 ml Bottle EA EYE SCH (21:49)
[2021-03-13] MEDS: Fluticasone Propionate Nasal Spray 16 gm Bottle NASAL PRN (21:50)
[2021-03-14] MEDS: Levothyroxine Sodium 75 MCG TAB PO SCH (05:46)
[2021-03-14] MEDS: Cipro 250 MG TAB PO SCH ×2 (05:46→20:52)
[2021-03-14] MEDS: Docusate 100 MG CAP PO SCH ×2 (08:27→20:53)
[2021-03-14] MEDS: Clopidogrel Bisulfate 75 MG TAB PO SCH (08:27)
[2021-03-14] MEDS: Aspirin Chewable 81 MG TAB PO SCH (08:27)
[2021-03-14] MEDS: Silodosin 8 MG CAP PO SCH (08:27)
[2021-03-14] MEDS: Lantus 1000 UNITS/10 ML VIAL SC SCH ×2 (08:28→20:53)
[2021-03-14] MEDS: Fluticasone Propionate Nasal Spray 16 gm Bottle NASAL PRN (08:28)
[2021-03-14] MEDS: Icosapent Ethyl [Vascepa] 1 GM Capsule PO SCH ×2 (08:29→20:55)
[2021-03-14] MEDS: HumaLOG 300 UNITS/3 ML VIAL SC PRN (18:35)
[2021-03-14] MEDS: Atorvastatin Calcium 40 MG TAB PO SCH (20:52)
[2021-03-14] MEDS: Latanoprost 0.005% Ophth Soln 2.5 ml Bottle EA EYE SCH (20:54)
[2021-03-15] MEDS: Cipro 250 MG TAB PO SCH ×2 (05:37→20:15)
[2021-03-15] MEDS: Levothyroxine Sodium 75 MCG TAB PO SCH (05:37)
[2021-03-15] MEDS: Silodosin 8 MG CAP PO SCH (08:45)
[2021-03-15] MEDS: Clopidogrel Bisulfate 75 MG TAB PO SCH (08:56)
[2021-03-15] MEDS: Aspirin Chewable 81 MG TAB PO SCH (08:56)
[2021-03-15] MEDS: Icosapent Ethyl [Vascepa] 1 GM Capsule PO SCH ×2 (08:57→20:18)
[2021-03-15] MEDS: Lantus 1000 UNITS/10 ML VIAL SC SCH ×2 (08:57→20:15)
[2021-03-15] MEDS: Docusate 100 MG CAP PO SCH ×2 (08:57→20:15)
[2021-03-15] MEDS: Atorvastatin Calcium 40 MG TAB PO SCH (20:15)
[2021-03-15] MEDS: Latanoprost 0.005% Ophth Soln 2.5 ml Bottle EA EYE SCH (20:18)
[2021-03-16] MEDS: Levothyroxine Sodium 75 MCG TAB PO SCH (05:04)
[2021-03-16] MEDS: Cipro 250 MG TAB PO SCH ×2 (05:04→20:38)
[2021-03-16] MEDS: Silodosin 8 MG CAP PO SCH (09:09)
[2021-03-16] MEDS: Clopidogrel Bisulfate 75 MG TAB PO SCH (09:09)
[2021-03-16] MEDS: Lantus 1000 UNITS/10 ML VIAL SC SCH ×2 (09:09→20:37)
[2021-03-16] MEDS: Aspirin Chewable 81 MG TAB PO SCH (09:09)
[2021-03-16] MEDS: Docusate 100 MG CAP PO SCH ×2 (09:09→20:37)
[2021-03-16] MEDS: Icosapent Ethyl [Vascepa] 1 GM Capsule PO SCH ×2 (18:18→20:38)
[2021-03-16 20:08] LABS: SARS-CoV-2 PCR NAA for Saliva Not Detected (NotDetected)
[2021-03-16] MEDS: Atorvastatin Calcium 40 MG TAB PO SCH (20:36)
[2021-03-16] MEDS: Latanoprost 0.005% Ophth Soln 2.5 ml Bottle EA EYE SCH (20:37)
[2021-03-17] MEDS: Levothyroxine Sodium 75 MCG TAB PO SCH (05:34)
[2021-03-17] MEDS: Lantus 1000 UNITS/10 ML VIAL SC SCH ×2 (08:52→20:58)
[2021-03-17] MEDS: Docusate 100 MG CAP PO SCH ×2 (08:52→21:02)
[2021-03-17] MEDS: Aspirin Chewable 81 MG TAB PO SCH (08:52)
[2021-03-17] MEDS: Clopidogrel Bisulfate 75 MG TAB PO SCH (08:52)
[2021-03-17] MEDS: Silodosin 8 MG CAP PO SCH (08:52)
[2021-03-17] MEDS: Icosapent Ethyl [Vascepa] 1 GM Capsule PO SCH ×2 (08:53→21:03)
[2021-03-17] MEDS: HumaLOG 300 UNITS/3 ML VIAL SC PRN ×2 (17:12→21:02)
[2021-03-17] MEDS: Latanoprost 0.005% Ophth Soln 2.5 ml Bottle EA EYE SCH (20:58)
[2021-03-17] MEDS: Atorvastatin Calcium 40 MG TAB PO SCH (21:03)
[2021-03-18] MEDS: Levothyroxine Sodium 75 MCG TAB PO SCH (05:18)
[2021-03-18] MEDS: Clopidogrel Bisulfate 75 MG TAB PO SCH (08:54)
[2021-03-18] MEDS: Docusate 100 MG CAP PO SCH ×2 (08:54→20:09)
[2021-03-18] MEDS: Silodosin 8 MG CAP PO SCH (08:54)
[2021-03-18] MEDS: Aspirin Chewable 81 MG TAB PO SCH (08:54)
[2021-03-18] MEDS: Lantus 1000 UNITS/10 ML VIAL SC SCH ×2 (08:54→21:04)
[2021-03-18] MEDS: Icosapent Ethyl [Vascepa] 1 GM Capsule PO SCH ×2 (08:55→20:14)
[2021-03-18] MEDS: TRULICITY SC SCH (18:07)
[2021-03-18] MEDS: Atorvastatin Calcium 40 MG TAB PO SCH (20:07)
[2021-03-18] MEDS: Latanoprost 0.005% Ophth Soln 2.5 ml Bottle EA EYE SCH (20:10)
[2021-03-18] MEDS: Fluticasone Propionate Nasal Spray 16 gm Bottle NASAL PRN (20:57)
[2021-03-19] MEDS: Levothyroxine Sodium 75 MCG TAB PO SCH (05:40)
[2021-03-19 07:23] VITALS: BP 136/92; TEMP 98.3
[2021-03-19] MEDS: Clopidogrel Bisulfate 75 MG TAB PO SCH (09:11)
[2021-03-19] MEDS: Silodosin 8 MG CAP PO SCH (09:11)
[2021-03-19] MEDS: Aspirin Chewable 81 MG TAB PO SCH (09:11)
[2021-03-19] MEDS: Docusate 100 MG CAP PO SCH (09:12)
[2021-03-19] MEDS: Icosapent Ethyl [Vascepa] 1 GM Capsule PO SCH (09:14)
[2021-03-19] MEDS: Lantus 1000 UNITS/10 ML VIAL SC SCH (09:15)
[2021-03-20] MEDS ORDERED: Lantus 1000 UNITS/10 ML VIAL SC SCH (09:00)
== END 2021-03-19 16:00 | disposition home or self-care (01) | DRG 947 ==
LOC: MADMS 15:36
PROVIDERS: ADMIT Family Medicine; ATTEND Family Medicine
DX: R53.81 Other malaise (principal); I63.9 Cerebral infarction, unspecified; C34.90 Malignant neoplasm of unspecified part of unspecified bronchus or lung; C79.31 Secondary malignant neoplasm of brain; I50.32 Chronic diastolic (congestive) heart failure; I13.0 Hypertensive heart and chronic kidney disease with heart failure and stage 1 through stage 4 chronic kidney disease, or unspecified chronic kidney disease; N39.0 Urinary tract infection, site not specified; N18.32 Chronic kidney disease, stage 3b; E11.22 Type 2 diabetes mellitus with diabetic chronic kidney disease; E78.5 Hyperlipidemia, unspecified; E11.51 Type 2 diabetes mellitus with diabetic peripheral angiopathy without gangrene; E03.9 Hypothyroidism, unspecified; R33.9 Retention of urine, unspecified; Z20.822 Contact with and (suspected) exposure to COVID-19; B96.5 Pseudomonas (aeruginosa) (mallei) (pseudomallei) as the cause of diseases classified elsewhere; Z95.0 Presence of cardiac pacemaker; Z87.891 Personal history of nicotine dependence; Z85.51 Personal history of malignant neoplasm of bladder; Z91.041 Radiographic dye allergy status; Z79.82 Long term (current) use of aspirin; Z79.4 Long term (current) use of insulin; Z79.899 Other long term (current) drug therapy; Z98.890 Other specified postprocedural states
CPT/HCPCS: 36415; 36416; 80053; 81001; 85025; 87077; 87086; 87186; J1815; U0003; U0005

== ENCOUNTER 2021-09-07 20:59 | Emergency (ER) | payer MEDICARE | END 2021-09-07 22:27 | disposition home or self-care (01) | LOC: MADERS 20:59 | DX: K59.00 Constipation, unspecified (principal); E03.9 Hypothyroidism, unspecified; E11.9 Type 2 diabetes mellitus without complications; Z79.899 Other long term (current) drug therapy | CPT/HCPCS: 99283 ==

== ENCOUNTER 2021-10-17 15:13 | Inpatient (IN) | payer MEDICARE ==
[2021-10-17] MEDS ORDERED: Dextrose 50% Abboject 50 ML SYRINGE SLOW IVP PRN (20:12)
[2021-10-17] MEDS: Latanoprost 0.005% Ophth Soln 2.5 ml Bottle EA EYE SCH (22:33)
[2021-10-17] MEDS: Famotidine 20 MG TAB PO SCH (22:34)
[2021-10-17] MEDS: Atorvastatin Calcium 40 MG TAB PO SCH (22:34)
[2021-10-17] MEDS: Vit A,C & E/Lutein/Minerals Tablet PO SCH (22:34)
[2021-10-17] MEDS: Acetaminophen 325 MG TAB PO PRN (22:35)
[2021-10-17] MEDS: (Icosapent Ethyl [Vascepa] 1 GM Capsule) PO SCH (22:37)
[2021-10-17 23:10] LABS: Bilirubin Negative (Negative); Blood, Urine Trace (Negative); Clarity Clear (Clear); Glucose, Urine (Dipstick) 100 mg/dL (Negative); Ketone, Urine Negative (Negative); Leukocyte Trace (Negative); Nitrite Negative (Negative); Protein, Urine (Dipstick) 100 mg/dL (Neg-Trace); Urobilinogen 0.2 mg/dL (Less than 2); pH, Urine 5.5 (5.0-9.0)
[2021-10-17 23:19] LABS: Bacteria/HPF None Seen HPF (None Seen); RBC/HPF 0-3 HPF (0-3); Transitional Epithelial 0-3 HPF (None Seen); WBC/HPF 21-50 HPF (0-3)
[2021-10-18] MEDS: Levothyroxine Sodium 100 MCG TAB PO SCH (06:02)
[2021-10-18 06:30] LABS: Hemoglobin 13.3 g/dL (14.0-18.0); Mean Corpuscular Hemoglobin 31.3 pg (27.0-31.0); Mean Platelet Volume 13.7 fL (7.4-10.4); Platelet Count 94 thou/uL (130-400); RBC Distribution Width 13.2 % (11.5-14.5); Red Blood Cell (RBC) Count 4.24 mill/uL (4.70-6.10); White Blood Cell (WBC) Count 11.8 thou/uL (4.8-10.8)
[2021-10-18] MEDS: Aspirin Chewable 81 MG TAB PO SCH (08:57)
[2021-10-18] MEDS: Vit A,C & E/Lutein/Minerals Tablet PO SCH ×2 (08:57→21:54)
[2021-10-18] MEDS: Clopidogrel Bisulfate 75 MG TAB PO SCH (08:57)
[2021-10-18] MEDS: Lantus 1000 UNITS/10 ML VIAL SC SCH (08:57)
[2021-10-18] MEDS: Famotidine 20 MG TAB PO SCH ×2 (08:57→21:54)
[2021-10-18] MEDS: (Icosapent Ethyl [Vascepa] 1 GM Capsule) PO SCH ×2 (08:58→21:55)
[2021-10-18] MEDS: HumaLOG 300 UNITS/3 ML VIAL SC PRN ×2 (09:00→17:29)
[2021-10-18] MEDS ORDERED: Enoxaparin Sodium 40 MG/0.4 ML SYRINGE SC SCH (09:00)
[2021-10-18] MEDS: Polyethylene Glycol 3350 17 GM Packet PO SCH (09:05)
[2021-10-18] MEDS: VASCEPA 1 GM PO SCH (21:54)
[2021-10-18] MEDS: Latanoprost 0.005% Ophth Soln 2.5 ml Bottle EA EYE SCH (21:55)
[2021-10-18] MEDS: Atorvastatin Calcium 40 MG TAB PO SCH (22:00)
[2021-10-19] MEDS: Levothyroxine Sodium 100 MCG TAB PO SCH (05:56)
[2021-10-19 06:12] LABS: #Basophils 0.2 thou/uL (0.0-0.2); #Eosinphils 0.3 thou/uL (0.0-0.7); #Lymphocytes 1.9 thou/uL (1.20-3.40); #Monocytes 1.4 thou/uL (0.11-0.59); #Neutrophils 10.6 thou/uL (1.40-6.50); %Basophils 1.2 % (0.0-1.0); %Eosinophils 1.8 % (0.0-10.0); %Lymphocytes 13.1 % (21.0-51.0); %Monocytes 9.5 % (0.0-10.0); %Neutrophils 74.4 % (42.0-75.0); Hemoglobin 13.3 g/dL (14.0-18.0); Mean Corpuscular HGB CONC 33.2 g/dL (32.0-36.0); Mean Corpuscular Hemoglobin 31.9 pg (27.0-31.0); Mean Corpuscular Volume 96.1 fL (78.0-98.0); Mean Platelet Volume 12.7 fL (7.4-10.4); Platelet Count 90 thou/uL (130-400); RBC Distribution Width 13.3 % (11.5-14.5); Red Blood Cell (RBC) Count 4.18 mill/uL (4.70-6.10); White Blood Cell (WBC) Count 14.2 thou/uL (4.8-10.8)
[2021-10-19] MEDS ORDERED: Enoxaparin Sodium 40 MG/0.4 ML SYRINGE SC SCH (09:00)
[2021-10-19] MEDS ORDERED: Enoxaparin Sodium 30 MG/0.3 ML SYRINGE SC SCH (09:00)
[2021-10-19] MEDS: Famotidine 20 MG TAB PO SCH ×2 (09:25→20:54)
[2021-10-19] MEDS: Vit A,C & E/Lutein/Minerals Tablet PO SCH ×2 (09:25→20:55)
[2021-10-19] MEDS: Aspirin Chewable 81 MG TAB PO SCH (09:25)
[2021-10-19] MEDS: Polyethylene Glycol 3350 17 GM Packet PO SCH (09:25)
[2021-10-19] MEDS: Clopidogrel Bisulfate 75 MG TAB PO SCH (09:25)
[2021-10-19] MEDS: Senokot S 8.6-50 MG TAB PO PRN (09:30)
[2021-10-19] MEDS: Lantus 1000 UNITS/10 ML VIAL SC SCH (09:32)
[2021-10-19] MEDS: HumaLOG 300 UNITS/3 ML VIAL SC PRN ×2 (09:33→12:19)
[2021-10-19] MEDS: VASCEPA 1 GM PO SCH ×2 (09:34→20:55)
[2021-10-19] MEDS ORDERED: Bisacodyl 10 MG SUPP PR PRN (10:34)
[2021-10-19] MEDS: Atorvastatin Calcium 40 MG TAB PO SCH (20:54)
[2021-10-19] MEDS: Latanoprost 0.005% Ophth Soln 2.5 ml Bottle EA EYE SCH (20:55)
[2021-10-20] MEDS: Levothyroxine Sodium 100 MCG TAB PO SCH (05:42)
[2021-10-20] MEDS: Acetaminophen 325 MG TAB PO PRN (05:44)
[2021-10-20] MEDS: Vit A,C & E/Lutein/Minerals Tablet PO SCH ×2 (08:35→20:26)
[2021-10-20] MEDS: Aspirin Chewable 81 MG TAB PO SCH (08:35)
[2021-10-20] MEDS: Famotidine 20 MG TAB PO SCH ×2 (08:35→20:26)
[2021-10-20] MEDS: Polyethylene Glycol 3350 17 GM Packet PO SCH (08:36)
[2021-10-20] MEDS: HumaLOG 300 UNITS/3 ML VIAL SC PRN ×4 (08:36→21:11)
[2021-10-20] MEDS: VASCEPA 1 GM PO SCH ×2 (08:36→20:27)
[2021-10-20] MEDS: Clopidogrel Bisulfate 75 MG TAB PO SCH (08:36)
[2021-10-20] MEDS: Lantus 1000 UNITS/10 ML VIAL SC SCH (08:36)
[2021-10-20 11:31] LABS: Bilirubin Negative (Negative); Blood, Urine Negative (Negative); Clarity Clear (Clear); Glucose, Urine (Dipstick) Negative (Negative); Ketone, Urine Negative (Negative); Leukocyte Small (Negative); Nitrite Negative (Negative); Protein, Urine (Dipstick) 100 mg/dL (Neg-Trace); Specific Gravity, Urine 1.025 (1.005-1.030)
[2021-10-20 11:40] LABS: Bacteria/HPF Rare-Few HPF (None Seen); Mucous/LPF 2+ LPF (<2+); RBC/HPF 0-3 HPF (0-3)
[2021-10-20] MEDS: Latanoprost 0.005% Ophth Soln 2.5 ml Bottle EA EYE SCH (20:25)
[2021-10-20] MEDS: Atorvastatin Calcium 40 MG TAB PO SCH (20:26)
[2021-10-21] MEDS: Levothyroxine Sodium 100 MCG TAB PO SCH (05:38)
[2021-10-21] MEDS: Aspirin Chewable 81 MG TAB PO SCH (08:28)
[2021-10-21] MEDS: Famotidine 20 MG TAB PO SCH ×2 (08:29→20:55)
[2021-10-21] MEDS: Clopidogrel Bisulfate 75 MG TAB PO SCH (08:29)
[2021-10-21] MEDS: Vit A,C & E/Lutein/Minerals Tablet PO SCH ×2 (08:29→20:54)
[2021-10-21] MEDS: VASCEPA 1 GM PO SCH ×2 (08:30→21:04)
[2021-10-21] MEDS: Lantus 1000 UNITS/10 ML VIAL SC SCH (08:33)
[2021-10-21] MEDS: HumaLOG 300 UNITS/3 ML VIAL SC PRN ×4 (08:38→21:04)
[2021-10-21] MEDS ORDERED: (Dulaglutide [Trulicity] 0.75 MG) SC SCH (09:00)
[2021-10-21] MEDS: Polyethylene Glycol 3350 17 GM Packet PO SCH (10:14)
[2021-10-21] MEDS ORDERED: Lantus 1000 UNITS/10 ML VIAL SC SCH (13:30)
[2021-10-21] MEDS: Atorvastatin Calcium 40 MG TAB PO SCH (20:55)
[2021-10-21] MEDS: Latanoprost 0.005% Ophth Soln 2.5 ml Bottle EA EYE SCH (23:00)
[2021-10-22] MEDS: Levothyroxine Sodium 100 MCG TAB PO SCH (06:36)
[2021-10-22] MEDS: Polyethylene Glycol 3350 17 GM Packet PO SCH (07:59)
[2021-10-22] MEDS: Vit A,C & E/Lutein/Minerals Tablet PO SCH ×2 (07:59→20:31)
[2021-10-22] MEDS: Clopidogrel Bisulfate 75 MG TAB PO SCH (07:59)
[2021-10-22] MEDS: Aspirin Chewable 81 MG TAB PO SCH (07:59)
[2021-10-22] MEDS: Famotidine 20 MG TAB PO SCH ×2 (07:59→20:31)
[2021-10-22] MEDS: VASCEPA 1 GM PO SCH ×2 (08:00→20:36)
[2021-10-22] MEDS: Lantus 1000 UNITS/10 ML VIAL SC SCH (08:00)
[2021-10-22] MEDS: HumaLOG 300 UNITS/3 ML VIAL SC PRN ×4 (08:01→21:05)
[2021-10-22] MEDS ORDERED: (Dulaglutide [Trulicity] 0.75 MG) SC SCH ×2 (12:15)
[2021-10-22] MEDS: Atorvastatin Calcium 40 MG TAB PO SCH (20:31)
[2021-10-22] MEDS: Latanoprost 0.005% Ophth Soln 2.5 ml Bottle EA EYE SCH (20:33)
[2021-10-23] MEDS: Levothyroxine Sodium 100 MCG TAB PO SCH (05:35)
[2021-10-23] MEDS: Clopidogrel Bisulfate 75 MG TAB PO SCH (08:42)
[2021-10-23] MEDS: Vit A,C & E/Lutein/Minerals Tablet PO SCH ×2 (08:42→20:08)
[2021-10-23] MEDS: Famotidine 20 MG TAB PO SCH ×2 (08:42→20:10)
[2021-10-23] MEDS: Aspirin Chewable 81 MG TAB PO SCH (08:42)
[2021-10-23] MEDS: Lantus 1000 UNITS/10 ML VIAL SC SCH ×2 (08:43→20:58)
[2021-10-23] MEDS: VASCEPA 1 GM PO SCH ×2 (08:44→20:06)
[2021-10-23] MEDS: Polyethylene Glycol 3350 17 GM Packet PO SCH (08:44)
[2021-10-23] MEDS: HumaLOG 300 UNITS/3 ML VIAL SC PRN ×3 (11:49→20:59)
[2021-10-23 14:43] LABS: SARS-CoV-2 PCR by NAA Not Detected (NotDetected)
[2021-10-23] MEDS: Atorvastatin Calcium 40 MG TAB PO SCH (20:08)
[2021-10-23] MEDS: Latanoprost 0.005% Ophth Soln 2.5 ml Bottle EA EYE SCH (20:12)
[2021-10-24] MEDS: Levothyroxine Sodium 100 MCG TAB PO SCH (05:41)
[2021-10-24] MEDS: Vit A,C & E/Lutein/Minerals Tablet PO SCH ×2 (08:39→20:01)
[2021-10-24] MEDS: Famotidine 20 MG TAB PO SCH ×2 (08:39→20:01)
[2021-10-24] MEDS: Aspirin Chewable 81 MG TAB PO SCH (08:39)
[2021-10-24] MEDS: Clopidogrel Bisulfate 75 MG TAB PO SCH (08:39)
[2021-10-24] MEDS: Lantus 1000 UNITS/10 ML VIAL SC SCH ×2 (08:40→20:02)
[2021-10-24] MEDS: HumaLOG 300 UNITS/3 ML VIAL SC PRN ×4 (08:40→20:53)
[2021-10-24] MEDS: Polyethylene Glycol 3350 17 GM Packet PO SCH (08:41)
[2021-10-24] MEDS: VASCEPA 1 GM PO SCH ×2 (08:41→20:03)
[2021-10-24 14:24] LABS: #Basophils 0.1 thou/uL (0.0-0.2); #Eosinphils 0.2 thou/uL (0.0-0.7); #Lymphocytes 1.4 thou/uL (1.20-3.40); #Neutrophils 8.2 thou/uL (1.40-6.50); %Eosinophils 1.7 % (0.0-10.0); %Lymphocytes 12.8 % (21.0-51.0); %Monocytes 9.5 % (0.0-10.0); Anisocytosis SLIGHT = 6-15 cells (100X) (0-5/hpf); Hemoglobin 13.2 g/dL (14.0-18.0); MDiff Complete? YES; Mean Corpuscular HGB CONC 32.5 g/dL (32.0-36.0); Mean Corpuscular Hemoglobin 32.2 pg (27.0-31.0); Mean Corpuscular Volume 99.2 fL (78.0-98.0); Mean Platelet Volume 11.6 fL (7.4-10.4); Platelet Count 97 thou/uL (130-400); Platelet Morphology Comment Appears Decreased; RBC Distribution Width 13.9 % (11.5-14.5); Red Blood Cell (RBC) Count 4.08 mill/uL (4.70-6.10); White Blood Cell (WBC) Count 10.9 thou/uL (4.8-10.8)
[2021-10-24] MEDS: Latanoprost 0.005% Ophth Soln 2.5 ml Bottle EA EYE SCH (20:02)
[2021-10-24] MEDS: Atorvastatin Calcium 40 MG TAB PO SCH (20:02)
[2021-10-24 21:35] LABS: Hemoglobin A1c 6.9 % (4.0-6.0)
[2021-10-25] MEDS: Levothyroxine Sodium 100 MCG TAB PO SCH (05:36)
[2021-10-25] MEDS: Lantus 1000 UNITS/10 ML VIAL SC SCH ×2 (09:42→20:19)
[2021-10-25] MEDS: Polyethylene Glycol 3350 17 GM Packet PO SCH (09:42)
[2021-10-25] MEDS: Clopidogrel Bisulfate 75 MG TAB PO SCH (09:43)
[2021-10-25] MEDS: Vit A,C & E/Lutein/Minerals Tablet PO SCH ×2 (09:43→20:19)
[2021-10-25] MEDS: Famotidine 20 MG TAB PO SCH ×2 (09:43→20:20)
[2021-10-25] MEDS: VASCEPA 1 GM PO SCH ×2 (09:43→20:19)
[2021-10-25] MEDS: Aspirin Chewable 81 MG TAB PO SCH (09:43)
[2021-10-25] MEDS: Acetaminophen 325 MG TAB PO PRN ×2 (09:45→20:18)
[2021-10-25] MEDS: HumaLOG 300 UNITS/3 ML VIAL SC PRN (17:16)
[2021-10-25] MEDS: Atorvastatin Calcium 40 MG TAB PO SCH (20:19)
[2021-10-25] MEDS: Latanoprost 0.005% Ophth Soln 2.5 ml Bottle EA EYE SCH (20:19)
[2021-10-26] MEDS: Levothyroxine Sodium 100 MCG TAB PO SCH (05:41)
[2021-10-26] MEDS: Ondansetron ODT 4 MG TAB PO PRN (05:44)
[2021-10-26] MEDS: Lantus 1000 UNITS/10 ML VIAL SC SCH ×2 (09:02→21:38)
[2021-10-26] MEDS: Aspirin Chewable 81 MG TAB PO SCH (09:03)
[2021-10-26] MEDS: Clopidogrel Bisulfate 75 MG TAB PO SCH (09:03)
[2021-10-26] MEDS: VASCEPA 1 GM PO SCH ×2 (09:03→21:47)
[2021-10-26] MEDS: Famotidine 20 MG TAB PO SCH ×2 (09:03→21:36)
[2021-10-26] MEDS: Polyethylene Glycol 3350 17 GM Packet PO SCH (09:04)
[2021-10-26] MEDS: Vit A,C & E/Lutein/Minerals Tablet PO SCH ×2 (09:04→21:34)
[2021-10-26] MEDS: Senokot S 8.6-50 MG TAB PO PRN ×2 (09:06→21:34)
[2021-10-26] MEDS: Acetaminophen 325 MG TAB PO PRN (09:06)
[2021-10-26] MEDS: Latanoprost 0.005% Ophth Soln 2.5 ml Bottle EA EYE SCH (21:33)
[2021-10-26] MEDS: Atorvastatin Calcium 40 MG TAB PO SCH (21:34)
[2021-10-27] MEDS: Levothyroxine Sodium 100 MCG TAB PO SCH (05:51)
[2021-10-27] MEDS: Clopidogrel Bisulfate 75 MG TAB PO SCH (08:36)
[2021-10-27] MEDS: Vit A,C & E/Lutein/Minerals Tablet PO SCH ×2 (08:36→21:41)
[2021-10-27] MEDS: Lantus 1000 UNITS/10 ML VIAL SC SCH ×2 (08:36→21:39)
[2021-10-27] MEDS: Aspirin Chewable 81 MG TAB PO SCH (08:36)
[2021-10-27] MEDS: Famotidine 20 MG TAB PO SCH ×2 (08:36→21:42)
[2021-10-27] MEDS: Polyethylene Glycol 3350 17 GM Packet PO SCH (08:38)
[2021-10-27] MEDS: Acetaminophen 325 MG TAB PO PRN ×3 (08:40→21:46)
[2021-10-27] MEDS: VASCEPA 1 GM PO SCH ×2 (08:41→21:43)
[2021-10-27] MEDS: HumaLOG 300 UNITS/3 ML VIAL SC PRN (16:39)
[2021-10-27] MEDS: Latanoprost 0.005% Ophth Soln 2.5 ml Bottle EA EYE SCH (21:39)
[2021-10-27] MEDS: Atorvastatin Calcium 40 MG TAB PO SCH (21:41)
[2021-10-28] MEDS: Levothyroxine Sodium 100 MCG TAB PO SCH (05:58)
[2021-10-28] MEDS: Lantus 1000 UNITS/10 ML VIAL SC SCH ×2 (07:57→22:15)
[2021-10-28] MEDS: VASCEPA 1 GM PO SCH ×2 (07:59→21:53)
[2021-10-28] MEDS: Clopidogrel Bisulfate 75 MG TAB PO SCH (07:59)
[2021-10-28] MEDS: Vit A,C & E/Lutein/Minerals Tablet PO SCH ×2 (07:59→21:51)
[2021-10-28] MEDS: Aspirin Chewable 81 MG TAB PO SCH (07:59)
[2021-10-28] MEDS: Famotidine 20 MG TAB PO SCH ×2 (07:59→21:51)
[2021-10-28] MEDS: Polyethylene Glycol 3350 17 GM Packet PO SCH (08:00)
[2021-10-28] MEDS: Latanoprost 0.005% Ophth Soln 2.5 ml Bottle EA EYE SCH (21:51)
[2021-10-28] MEDS: Atorvastatin Calcium 40 MG TAB PO SCH (21:51)
[2021-10-29] MEDS: Levothyroxine Sodium 100 MCG TAB PO SCH (05:49)
[2021-10-29] MEDS: Polyethylene Glycol 3350 17 GM Packet PO SCH (08:36)
[2021-10-29] MEDS: Lantus 1000 UNITS/10 ML VIAL SC SCH ×2 (08:36→22:08)
[2021-10-29] MEDS: Aspirin Chewable 81 MG TAB PO SCH (08:37)
[2021-10-29] MEDS: Vit A,C & E/Lutein/Minerals Tablet PO SCH ×2 (08:37→22:07)
[2021-10-29] MEDS: VASCEPA 1 GM PO SCH ×2 (08:37→22:07)
[2021-10-29] MEDS: Famotidine 20 MG TAB PO SCH ×2 (08:37→22:07)
[2021-10-29] MEDS: Clopidogrel Bisulfate 75 MG TAB PO SCH (08:37)
[2021-10-29] MEDS: (Dulaglutide [Trulicity] 0.75 MG) SC SCH (08:38)
[2021-10-29] MEDS ORDERED: (Dulaglutide [Trulicity] 0.75 MG) SC SCH (09:00)
[2021-10-29] MEDS: Atorvastatin Calcium 40 MG TAB PO SCH (22:05)
[2021-10-29] MEDS: Acetaminophen 325 MG TAB PO PRN (22:06)
[2021-10-29] MEDS: Senokot S 8.6-50 MG TAB PO PRN (22:07)
[2021-10-29] MEDS: Latanoprost 0.005% Ophth Soln 2.5 ml Bottle EA EYE SCH (22:38)
[2021-10-30] MEDS: Levothyroxine Sodium 100 MCG TAB PO SCH (05:44)
[2021-10-30] MEDS: Famotidine 20 MG TAB PO SCH ×2 (09:24→20:45)
[2021-10-30] MEDS: Aspirin Chewable 81 MG TAB PO SCH (09:24)
[2021-10-30] MEDS: Vit A,C & E/Lutein/Minerals Tablet PO SCH ×2 (09:24→20:45)
[2021-10-30] MEDS: Clopidogrel Bisulfate 75 MG TAB PO SCH (09:25)
[2021-10-30] MEDS: Lantus 1000 UNITS/10 ML VIAL SC SCH ×2 (09:25→20:51)
[2021-10-30] MEDS: Polyethylene Glycol 3350 17 GM Packet PO SCH (09:28)
[2021-10-30] MEDS: VASCEPA 1 GM PO SCH ×2 (09:28→20:49)
[2021-10-30] MEDS: Ondansetron ODT 4 MG TAB PO PRN (12:03)
[2021-10-30 15:26] LABS: SARS-CoV-2 PCR by NAA Not Detected (NotDetected)
[2021-10-30] MEDS: Atorvastatin Calcium 40 MG TAB PO SCH (20:43)
[2021-10-30] MEDS: Latanoprost 0.005% Ophth Soln 2.5 ml Bottle EA EYE SCH (20:46)
[2021-10-31] MEDS: Levothyroxine Sodium 100 MCG TAB PO SCH (05:40)
[2021-10-31] MEDS: Famotidine 20 MG TAB PO SCH ×2 (08:14→20:54)
[2021-10-31] MEDS: Lantus 1000 UNITS/10 ML VIAL SC SCH ×2 (08:14→20:54)
[2021-10-31] MEDS: Vit A,C & E/Lutein/Minerals Tablet PO SCH ×2 (08:14→20:53)
[2021-10-31] MEDS: Aspirin Chewable 81 MG TAB PO SCH (08:14)
[2021-10-31] MEDS: Clopidogrel Bisulfate 75 MG TAB PO SCH (08:14)
[2021-10-31] MEDS: VASCEPA 1 GM PO SCH ×2 (08:15→20:59)
[2021-10-31] MEDS: Polyethylene Glycol 3350 17 GM Packet PO SCH (08:16)
[2021-10-31] MEDS: Atorvastatin Calcium 40 MG TAB PO SCH (20:53)
[2021-10-31] MEDS: Latanoprost 0.005% Ophth Soln 2.5 ml Bottle EA EYE SCH (20:54)
[2021-11-01] MEDS: Levothyroxine Sodium 100 MCG TAB PO SCH (05:47)
[2021-11-01] MEDS: Aspirin Chewable 81 MG TAB PO SCH (08:59)
[2021-11-01] MEDS: Vit A,C & E/Lutein/Minerals Tablet PO SCH ×2 (08:59→22:25)
[2021-11-01] MEDS: Clopidogrel Bisulfate 75 MG TAB PO SCH (08:59)
[2021-11-01] MEDS: Famotidine 20 MG TAB PO SCH ×2 (08:59→22:25)
[2021-11-01] MEDS: Lantus 1000 UNITS/10 ML VIAL SC SCH ×2 (08:59→22:26)
[2021-11-01] MEDS: VASCEPA 1 GM PO SCH ×2 (09:00→22:27)
[2021-11-01] MEDS: Polyethylene Glycol 3350 17 GM Packet PO SCH (09:00)
[2021-11-01] MEDS: Latanoprost 0.005% Ophth Soln 2.5 ml Bottle EA EYE SCH (22:26)
[2021-11-01] MEDS: Atorvastatin Calcium 40 MG TAB PO SCH (22:26)
[2021-11-02] MEDS: Levothyroxine Sodium 100 MCG TAB PO SCH (05:46)
[2021-11-02] MEDS: Lantus 1000 UNITS/10 ML VIAL SC SCH ×2 (08:01→22:01)
[2021-11-02] MEDS: Famotidine 20 MG TAB PO SCH ×2 (08:02→22:00)
[2021-11-02] MEDS: Clopidogrel Bisulfate 75 MG TAB PO SCH (08:02)
[2021-11-02] MEDS: Aspirin Chewable 81 MG TAB PO SCH (08:02)
[2021-11-02] MEDS: Vit A,C & E/Lutein/Minerals Tablet PO SCH ×2 (08:02→22:00)
[2021-11-02] MEDS: Polyethylene Glycol 3350 17 GM Packet PO SCH (08:03)
[2021-11-02] MEDS: VASCEPA 1 GM PO SCH ×2 (08:03→22:00)
[2021-11-02] MEDS: Acetaminophen 325 MG TAB PO PRN (15:30)
[2021-11-02] MEDS: Atorvastatin Calcium 40 MG TAB PO SCH (22:00)
[2021-11-02] MEDS: Latanoprost 0.005% Ophth Soln 2.5 ml Bottle EA EYE SCH (22:01)
[2021-11-03] MEDS: Levothyroxine Sodium 100 MCG TAB PO SCH (05:41)
[2021-11-03] MEDS: Vit A,C & E/Lutein/Minerals Tablet PO SCH ×2 (08:09→20:35)
[2021-11-03] MEDS: Lantus 1000 UNITS/10 ML VIAL SC SCH ×2 (08:09→20:36)
[2021-11-03] MEDS: Clopidogrel Bisulfate 75 MG TAB PO SCH (08:09)
[2021-11-03] MEDS: Aspirin Chewable 81 MG TAB PO SCH (08:09)
[2021-11-03] MEDS: Famotidine 20 MG TAB PO SCH ×2 (08:09→20:35)
[2021-11-03] MEDS: VASCEPA 1 GM PO SCH ×2 (08:11→20:37)
[2021-11-03] MEDS: Polyethylene Glycol 3350 17 GM Packet PO SCH (08:12)
[2021-11-03] MEDS: Atorvastatin Calcium 40 MG TAB PO SCH (20:35)
[2021-11-03] MEDS: Latanoprost 0.005% Ophth Soln 2.5 ml Bottle EA EYE SCH (20:36)
[2021-11-04] MEDS: Levothyroxine Sodium 100 MCG TAB PO SCH (05:39)
[2021-11-04] MEDS: Famotidine 20 MG TAB PO SCH ×2 (08:13→20:45)
[2021-11-04] MEDS: Aspirin Chewable 81 MG TAB PO SCH (08:13)
[2021-11-04] MEDS: Vit A,C & E/Lutein/Minerals Tablet PO SCH ×2 (08:14→20:49)
[2021-11-04] MEDS: Clopidogrel Bisulfate 75 MG TAB PO SCH (08:14)
[2021-11-04] MEDS: VASCEPA 1 GM PO SCH ×2 (08:14→20:46)
[2021-11-04] MEDS: Polyethylene Glycol 3350 17 GM Packet PO SCH (08:19)
[2021-11-04] MEDS: Lantus 1000 UNITS/10 ML VIAL SC SCH ×2 (08:19→20:46)
[2021-11-04 12:10] VITALS: BMI 26.9
[2021-11-04] MEDS: Atorvastatin Calcium 40 MG TAB PO SCH (20:45)
[2021-11-04] MEDS: Latanoprost 0.005% Ophth Soln 2.5 ml Bottle EA EYE SCH (20:47)
[2021-11-05] MEDS: Levothyroxine Sodium 100 MCG TAB PO SCH (05:30)
[2021-11-05] MEDS: Lantus 1000 UNITS/10 ML VIAL SC SCH ×2 (09:00→20:57)
[2021-11-05] MEDS: Clopidogrel Bisulfate 75 MG TAB PO SCH (09:00)
[2021-11-05] MEDS: Vit A,C & E/Lutein/Minerals Tablet PO SCH ×2 (09:00→20:56)
[2021-11-05] MEDS: Famotidine 20 MG TAB PO SCH ×2 (09:00→20:56)
[2021-11-05] MEDS: Polyethylene Glycol 3350 17 GM Packet PO SCH (09:00)
[2021-11-05] MEDS: Aspirin Chewable 81 MG TAB PO SCH (09:00)
[2021-11-05] MEDS: VASCEPA 1 GM PO SCH ×2 (09:02→20:57)
[2021-11-05] MEDS: (Dulaglutide [Trulicity] 0.75 MG) SC SCH (09:12)
[2021-11-05 14:05] LABS: SARS-CoV-2 PCR by NAA Not Detected (NotDetected)
[2021-11-05] MEDS: Atorvastatin Calcium 40 MG TAB PO SCH (20:56)
[2021-11-05] MEDS: Senokot S 8.6-50 MG TAB PO PRN (20:56)
[2021-11-05] MEDS: Latanoprost 0.005% Ophth Soln 2.5 ml Bottle EA EYE SCH (20:57)
[2021-11-06] MEDS: Levothyroxine Sodium 100 MCG TAB PO SCH (05:38)
[2021-11-06 07:56] VITALS: BP 110/68; TEMP 98
[2021-11-06] MEDS: Famotidine 20 MG TAB PO SCH (08:52)
[2021-11-06] MEDS: Aspirin Chewable 81 MG TAB PO SCH (08:52)
[2021-11-06] MEDS: Polyethylene Glycol 3350 17 GM Packet PO SCH (08:52)
[2021-11-06] MEDS: Vit A,C & E/Lutein/Minerals Tablet PO SCH (08:52)
[2021-11-06] MEDS: Clopidogrel Bisulfate 75 MG TAB PO SCH (08:52)
[2021-11-06] MEDS: VASCEPA 1 GM PO SCH (08:52)
[2021-11-06] MEDS: Lantus 1000 UNITS/10 ML VIAL SC SCH (08:53)
[2021-11-06] MEDS: Acetaminophen 325 MG TAB PO PRN (12:21)
[2021-11-06] MEDS: Ondansetron ODT 4 MG TAB PO PRN (12:23)
== END 2021-11-06 14:50 | DRG 948 ==
LOC: UNDOADMIN 16:04 → MADMS 16:04
PROVIDERS: ADMIT Family Medicine; ATTEND Family Medicine
DX: R53.81 Other malaise (principal); N39.0 Urinary tract infection, site not specified; C34.90 Malignant neoplasm of unspecified part of unspecified bronchus or lung; C79.31 Secondary malignant neoplasm of brain; I69.354 Hemiplegia and hemiparesis following cerebral infarction affecting left non-dominant side; I45.10 Unspecified right bundle-branch block; I12.9 Hypertensive chronic kidney disease with stage 1 through stage 4 chronic kidney disease, or unspecified chronic kidney disease; T83.511D Infection and inflammatory reaction due to indwelling urethral catheter, subsequent encounter; E11.22 Type 2 diabetes mellitus with diabetic chronic kidney disease; E11.51 Type 2 diabetes mellitus with diabetic peripheral angiopathy without gangrene; D69.6 Thrombocytopenia, unspecified; E78.2 Mixed hyperlipidemia; E03.9 Hypothyroidism, unspecified; R33.9 Retention of urine, unspecified; N31.9 Neuromuscular dysfunction of bladder, unspecified; H92.03 Otalgia, bilateral; M54.2 Cervicalgia; Z20.822 Contact with and (suspected) exposure to COVID-19; N18.31 Chronic kidney disease, stage 3a; D63.1 Anemia in chronic kidney disease; Z79.82 Long term (current) use of aspirin; Z92.21 Personal history of antineoplastic chemotherapy; Z79.899 Other long term (current) drug therapy; Z88.8 Allergy status to other drugs, medicaments and biological substances; Z79.4 Long term (current) use of insulin; Z95.0 Presence of cardiac pacemaker; Z85.51 Personal history of malignant neoplasm of bladder; Z98.890 Other specified postprocedural states; Z87.891 Personal history of nicotine dependence
CPT/HCPCS: 36415; 36416; 81001; 82565; 83036; 85025; 85027; 87086; J1815; Q0162; U0003; U0005